=== PATIENT | male | born 1975 | race Two or more races ===

== ENCOUNTER 2019-03-15 09:41 | Emergency (ER) | payer OTHER ==
[2019-03-15 10:01] VITALS: BP 135/90; PULSE 79; RESP 16; TEMP 97.8; O2SAT 96
--- NOTE | 2019-03-15 10:50 | ED PDOC ---
Arrival/HPI - General Historian: Patient - History of Present Illness Narrative History of Present Illness (Text): 03/15/19 10:28 43-year-old male presents today status post fall. Patient states he was running in the hallway after his daughter he tripped and fell landing on the right arm. He denies hitting his head. Patient initially states he had pain to the right elbow. Patient states at present time he has no pain. He denies abdominal pain. No back pain. He denies any complaints and states he wants to go home. Time/Duration: Prior to Arrival Symptom Onset: Sudden Symptom Course: Resolved <Migdalia Llamas - Last Filed: 03/15/19 10:26> <Rey Leal - Last Filed: 03/15/19 11:21> - General Chief Complaint: Upper Extremity Problem/Injury Time Seen by Provider: 03/15/19 10:02 Past Medical History - Provider Review Nursing Documentation Reviewed: Yes - Travel History Have you recently traveled outside [place] w/in the past 3 mons?: No - Cardiac Hx Cardiac Disorders: No - Pulmonary Hx Respiratory Disorders: No - Neurological Hx Neurological Disorder: No - HEENT Hx HEENT Disorder: No - Renal Hx Renal Disorder: No - Endocrine/Metabolic Hx Endocrine Disorders: No - Hematological/Oncological Hx Blood Disorders: No - Integumentary Hx Dermatological Disorder: No - Musculoskeletal/Rheumatological Hx Musculoskeletal Disorders: No - Gastrointestinal Hx Gastrointestinal Disorders: Yes Hx Hemorrhoids: Yes - Genitourinary/Gynecological Hx Genitourinary Disorders: No - Psychiatric Hx Psychophysiologic Disorder: No Hx Substance Use: No - Surgical History Other/Comment: RECTAL - Anesthesia Hx Anesthesia: Yes <Migdalia Llamas - Last Filed: 03/15/19 10:26> Family/Social History - Physician Review Nursing Documentation Reviewed: Yes Family/Social History: Unknown Family HX Smoking Status: Never Smoked Hx Alcohol Use: No Hx Substance Use: No <Migdalia Llamas - Last Filed: 03/15/19 10:26> Allergies/Home Meds <Migdalia Llamas - Last Filed: 03/15/19 10:26> <Rey Leal - Last Filed: 03/15/19 11:21> Allergies/Adverse Reactions: Allergies No Known Allergies Allergy (Verified 03/15/19 09:56) Home Medications: Home Meds Medication Instructions Recorded Confirmed No Known Home Med 03/15/19 03/15/19 Review of Systems - Review of Systems Constitutional: absent: Fatigue, Fevers Respiratory: absent: SOB, Cough Cardiovascular: absent: Chest Pain, Palpitations Gastrointestinal: absent: Abdominal Pain, Nausea, Vomiting Genitourinary Male: absent: Dysuria Musculoskeletal: Arthralgias (right elbow pain; resolved). absent: Back Pain, Neck Pain Skin: absent: Rash, Pruritis Neurological: absent: Headache, Dizziness <Migdalia Llamas - Last Filed: 03/15/19 10:26> Physical Exam Vital Signs Reviewed: Yes Vital Signs Temp Pulse Resp BP Pulse Ox 03/15/19 09:57 97.8 F 79 16 135/90 96 Temperature: Afebrile Blood Pressure: Normal Pulse: Regular Respiratory Rate: Normal Appearance: Positive for: Well-Appearing, Non-Toxic, Comfortable Pain Distress: None Mental Status: Positive for: Alert and Oriented X 3 - Systems Exam Head: Present: Atraumatic Mouth: Present: Moist Mucous Membranes Neck: Present: Normal Range of Motion. No: MIDLINE TENDERNESS, Paraspinal Tenderness Respiratory/Chest: Present: Clear to Auscultation, Good Air Exchange. No: Respiratory Distress, Accessory Muscle Use Cardiovascular: Present: Regular Rate and Rhythm, Normal S1, S2. No: Murmurs Abdomen: No: Tenderness Back: No: Midline Tenderness Upper Extremity: Present: Normal Inspection, Normal ROM, NORMAL PULSES, Neurovascularly Intact, Capillary Refill < 2s. No: Tenderness, Swelling, Erythema Lower Extremity: Present: Normal ROM Neurological: Present: GCS=15 Skin: Present: Warm, Dry, Normal Color. 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 denies any pain at present time and wants to leave. pt was advised to f/u with PMD/orthopedist and return if any concerning symptoms develop. Patient verbalizes understanding of discharge instructions and need for immediate followup. All aspects of this case were discussed the attending of record. Impression: Fall Follow-up with a primary care physician within the next 2 days Follow up with the orthopedist if pain develops. Return if you develop any concerning symptoms. <Migdalia Llamas - Last Filed: 03/15/19 10:26> - PA / ASSISTANT SOFTBALL COACH / Resident Statement MD/DO has reviewed & agrees with the documentation as recorded. <Rey Leal - Last Filed: 03/15/19 11:21> Disposition/Present on Arrival - Present on Arrival Any Indicators Present on Arrival: No History of DVT/PE: No History of Uncontrolled Diabetes: No Urinary Catheter: No History of Decub. Ulcer: No History Surgical Site Infection Following: None - Disposition Have Diagnosis and Disposition been Completed?: Yes Disposition Time: 10:26 Patient Plan: Discharge <Migdalia Llamas - Last Filed: 03/15/19 10:26> <Rey Leal - Last Filed: 03/15/19 11:21> - Disposition Diagnosis: Fall Disposition: HOME/ ROUTINE Condition: GOOD Discharge Instructions (ExitCare): Preventing Falls Additional Instructions: Follow-up with a primary care physician within the next 2 days Return if you develop any concerning symptoms. Referrals: Rosalind Beltre MD [Staff Provider] - Follow up with primary Soraida Ford MD [Staff Provider] - Follow up with primary Lisa Ford MD [Non-Staff] - Follow up with primary Forms: [employer] ([place]e), WORK NOTE
== END 2019-03-15 10:27 | disposition home or self-care (01) ==
LOC: ED 09:41
DX: Z04.3 Encounter for examination and observation following other accident (principal); W01.0XXA Fall on same level from slipping, tripping and stumbling without subsequent striking against object, initial encounter; Y93.02 Activity, running